=== PATIENT | female | born 1940 | race Caucasian/White ===

== ENCOUNTER 2016-09-20 02:02 | Emergency (ER) | payer OTHER, BC ==
[~2016-09-20] VITALS: Ht 152.4 cm; Wt 86.2 kg
[~2016-09-20 02:02] MED LIST: ACETAMINOPHEN PO; ALDACTONE25 MG PO; AMLODIPINE BESY10 MG PO; AMOX TR-K CLV1 EAC3 PO; APAP500 PO; BREO ELLIPTA 11 EACH IH; BYSTOLIC 5 MG5 M1 PO; CARBIDOPA-LEVO1 EAC9 PO; CEFADROXIL 500500 M1 PO; CELEXA 20 MG TA20 M1 PO; CELEXA 20 MG TA20 MG PO; CELEXA20 MG PO; CLONAZEPAM 0.50.5 M1 PO; CLONAZEPAM 1 MG1 M1 PO; COZAAR100 MG PO; DEMADEX20 MG PO; DUONEB 2.5-0.5 M3 ML INH; FUROSEMIDE 40 M40 M1 PO; GLUCOSAMINE &1 EACH PO; HYDROCODONE-AP1 EAC6 PO; HYZAAR 100-251 EACH PO; IRBESARTAN75 MG PO; KLOR-CON 1010 MEQ PO; LAMOTRIGINE200 MG PO; LASIX 20 MG TAB20 MG PO; LEVAQUIN 500 M500 MG PO; LEVOTHYROXIN0.112 M1 PO; LEVOTHYROXIN0.137 M1 PO; LORTAB 7.5/5001 TA3 PO; LOSARTAN-HCTZ1 EAC3 PO; MOBIC15 MG PO; POTASSIUM20 PO; PRAVACHOL80 MG PO; PRAVASTATIN SOD40 MG PO; PREDNISONE 20 M20 M1 PO; PREDNISONE 20 M20 MG PO; PRILOSEC40 MG PO; PROBIOTIC1 EAC1 PO; RANITIDINE HCL300 M1 PO; RISPERDAL0.5 MG PO; RISPERIDONE 1 MG1 MG PO; SPIRIVA; STRI PO; SYMBICORT160 MCG/4. IH; SYMBICORT160 MCG/4. INH; TERBINAFINE HC250 MG PO; TOPROL XL50 MG PO; TUMS CHEWA500 MG/11 PO; VENLAFAXIN75 MG/1 T2 PO; VITAMIN D1000 UNI1 PO; VITAMIN D250000 UNIT PO; [UNRECOGNIZED DRUG - OTHER] PO; [UNRECOGNIZED DRUG - OTHER] PO
[2016-09-20] MEDS ORDERED: DEMADEX10 MG (02:32)
[2016-09-20 02:37] LABS: ABG SAMPLE TYPE ARTERIAL; BE(vivo) 0.8 mmol/L (-2 to +3); HCO3 25.2 mmol/L (22.0-26.0); LACTATE 1.22 mmol/L (0.5-2.0); O2(CT) 14.9 mL/dL (15.0-23.0); O2Hb 91.4 % (92.0-98.0); PCO2 39.4 mmHg (35.0-45.0); PO2 62.9 mmHg (80.0-100.0); STICK SITE L.BRACHIAL; pH 7.424 (7.360-7.450); sO2 92.6 % (92.0-98.0); tCO2 26.4 mmol/L (24.0-30.0)
[2016-09-20 03:01] LABS: ABSOLUTE NEUTROPHILS 6.7 thou/uL (1.4-8.2); BASOPHILS 0.2 % (0.0-2.0); EOSINOPHILS 3.1 % (0.0-3.0); HEMATOCRIT 34.1 % (37.0-47.0); HEMOGLOBIN 11.1 gm/dL (12.0-15.0); LYMPHOCYTES 13.2 % (24.0-44.0); MCH 27.5 pg (26.0-34.0); MCHC 32.5 % (28.0-37.0); MCV 84.8 fL (80.0-100.0); MONOCYTES 9.8 % (1.0-8.0); PLATELET COUNT 206 thou/uL (150-400); POLYS 73.7 % (36.0-66.0); RBC 4.02 mil/uL (4.20-5.00); RDW 14.8 % (10.5-14.5); WBC 9.1 thou/uL (4.0-11.0)
[2016-09-20 03:04] LABS: MANUAL DIFF NO
[2016-09-20 03:12] LABS: CALCIUM 9.1 mg/dL (8.5-10.1); CREATININE 1.2 mg/dL (0.6-1.3)
[2016-09-20 03:15] LABS: POTASSIUM 4.5 mmol/L (3.5-5.1)
[2016-09-20] MEDS ORDERED: PROAIR HFA8.5 GM INH (03:45)
[2016-09-20] MEDS ORDERED: PREDNISONE 20 M20 MG PO (03:45)
[2016-09-20] MEDS ORDERED: TUSSIONEX PENN473 ML PO (03:51)
[2016-09-20] MEDS ORDERED: LEVAQUIN 500 M500 MG PO (04:07)
== END 2016-09-20 04:18 | disposition home or self-care (01) ==
LOC: ER 02:02
PROVIDERS: Emergency Medicine
DX: J44.1 Chronic obstructive pulmonary disease with (acute) exacerbation (principal); J98.01 Acute bronchospasm; F10.99 Alcohol use, unspecified with unspecified alcohol-induced disorder; K21.9 Gastro-esophageal reflux disease without esophagitis; I10 Essential (primary) hypertension; E78.00 Pure hypercholesterolemia, unspecified; F32.9 Major depressive disorder, single episode, unspecified; F41.9 Anxiety disorder, unspecified; Z98.890 Other specified postprocedural states; Z87.891 Personal history of nicotine dependence; Z88.8 Allergy status to other drugs, medicaments and biological substances

== ENCOUNTER → 2016-10-07 | Outpatient (CLI) | payer OTHER, BC ==
[~2016-10-07] MED LIST changes: +DEMADEX10 MG; +PROAIR HFA8.5 GM INH; +TUSSIONEX PENN473 ML PO
== END ==
LOC: RAD 12:59
DX: Z12.31 Encounter for screening mammogram for malignant neoplasm of breast (principal)

== ENCOUNTER 2017-06-12 06:21 | Inpatient (IN) | payer OTHER, BC ==
[~2017-06-12] VITALS: Ht 152.4 cm; Wt 92.9 kg
--- NOTE | ~2017-06-12 | EKG ---
[address] [address] ELECTROCARDIOGRAM REPORT Name: MINDI VILLANUEVA Room #: 450-P ADM IN M.R.#: [id number] Admission: 06/12/17 Attend Phys: Christiano Ward MD Discharge: Date of : 40 Report #: [id number] THIS REPORT FOR: //name// 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
--- NOTE | ~2017-06-12 | HC ---
[facility] [place] [address] CONSULTATION Name: MINDI VILLANUEVA Room #: 350-[facility] IN M.R.#: [id number] Admission: 06/12/17 Attend Phys: Christiano Ward MD Discharge: 06/17/17 Date of : 40 Report #: [id number] THIS REPORT FOR: //name// CC: Christiano Marry [facility] DATE OF SERVICE: 06/12/2017 REFERRING PROVIDER: Christiano Ward MD REASON FOR CONSULTATION: Shortness of breath. CHIEF COMPLAINT: Shortness of breath. HISTORY OF PRESENT ILLNESS: Our group is asked to see the patient in consultation while hospitalized at [facility], a pleasant 77-year-old woman with a past pulmonary history of chronic obstructive pulmonary disease, followed by Dr. Sumit Sullivan of our group for this, typically on Breo inhaler and p.r.n. nebulized treatments. She had been in her usual state of health, felt well until early this morning when she developed increasing shortness of breath and nonproductive cough. No fevers or chills. She awoke from sleep about 3:00 or 4:00 this morning with these symptoms. Denies any chest pain and presented to the Emergency Department. Chest x-ray suggested some perihilar infiltrates, which may be suggestive of pulmonary edema or early infiltrates. In the Emergency Department, was given Solu-Medrol, bronchodilators and has improved. No antibiotics have been administered. The patient is without any fever or sweats. Currently, resting comfortably in bed, typically does not require supplemental oxygen at home. She states, however, has been compliant with CPAP at night. No recent travel. No recent exposures. No recent ill contacts. ALLERGIES: INCLUDE ASPIRIN. PAST MEDICAL HISTORY: 1. Chronic obstructive pulmonary disease. 2. History of diastolic congestive heart failure. 3. Hypertension. 4. Hyperlipidemia. 5. Hypothyroidism. 6. Obstructive sleep apnea. PAST SURGICAL HISTORY: Includes thyroidectomy and cholecystectomy. SOCIAL HISTORY: The patient is a nonsmoker. No significant alcohol consumption. Lives with family. [facility] [address] [place] [address] CONSULTATION Name: MINDI VILLANUEVA Room #: 350-P [facility] IN ..#: [id number] Admission: 06/12/17 Attend Phys: Christiano Ward MD Discharge: 06/17/17 Date of : 40 Report #: [id number] FAMILY HISTORY: Negative for any significant pulmonary disease. REVIEW OF SYSTEMS: CONSTITUTIONAL: Denies any fever, chills or sweats. ENT: No upper respiratory congestion, rhinorrhea or dysphagia. CARDIOVASCULAR: No chest pains or palpitations. GASTROINTESTINAL: No nausea, vomiting, diarrhea, constipation or abdominal pain. GENITOURINARY: No dysuria, no frequency or hematuria. INTEGUMENT: Denies any rash. MUSCULOSKELETAL: No joint pains. Some lower extremity edema noted. Rest of 12 point review of systems normal or negative except as described in HPI. PHYSICAL EXAMINATION: VITAL SIGNS: Temperature 38.1, pulse 84, respiratory rate 20, blood pressure 140/51, oxygen saturation 93% on room air. GENERAL: This is an obese, elderly female, in no distress. HEENT: Clear oropharynx, Mallampati 3 airway, no thrush, no erythema. NECK: Supple, no lymphadenopathy. LUNGS: Bilateral basilar inspiratory crackles, no wheezes. CARDIOVASCULAR: Heart regular. No murmurs or gallops. ABDOMEN: Soft, nontender, no masses. EXTREMITIES: Revealed 1+ edema. LABORATORY DATA: Arterial blood gas done on 5 liters nasal cannula revealed pH 7.35, pCO2 of 51, pO2 of 84, bicarbonate 27. Sodium 142, potassium 3.8, chloride 105, bicarbonate 30, BUN 21, creatinine 1.3, glucose 166. ProBNP is 334. TSH is 1.014. Troponin is less than 0.04. White blood cell count 12,000, hemoglobin 13, hematocrit 39, platelet count 286. IMPRESSION: 1. Bilateral hilar infiltrates, can be consistent with early pulmonary edema, also could be consistent with pneumonia, possibly even aspiration during the evening while asleep should be considered. Given the leukocytosis and low-grade fever, would suggest covering with antimicrobial therapy for now. 2. Chronic obstructive pulmonary disease with acute exacerbation. 3. Diastolic congestive heart failure with decompensation. 4. Mildly elevated D-dimer. 5. Obstructive sleep apnea. SUGGESTIONS: 1. CPAP at night. 2. Follow arterial blood gas. 3. Add Levaquin. [address] [address] CONSULTATION Name: MINDI VILLANUEVA Room #: 350-P DIS IN M.R.#: [id number] Admission: 06/12/17 Attend Phys: Christiano Ward MD Discharge: 06/17/17 Date of : 40 Report #: [id number] 4. Continue with systemic steroids. 5. Bronchodilators. 6. Diuresis per business consultant. 7. Consider further imaging with CT scan of the chest regarding possible pulmonary embolus, although I think this is unlikely. Creatinine is slightly elevated at 1.3, we would not pursue at this time. 8. We will follow along with you. Thank you for requesting our suggestions. <ELECTRONICALLY SIGNED> By: Josh Hassan MD 06/20/17 0916 1432 1524 Josh Hassan MD /nt
--- NOTE | ~2017-06-12 | EKG ---
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: HTHOM : 1940 Requested By: Soco Jeff Order Number: [id number] MD: Ernesto Jenkins Measurements Intervals [place] Rate: 87 P: 60 SD: 158 QRS: -11 QRSD: 92 T: 34 QT: 368 QTc: 443 Interpretive Statements Sinus rhythm Nonspecific ST segment abnormality Compared to ECG 08/03/2015 13:40:33 No significant changes Electronically Signed On 06-13-2017 8:33:23 CDT by Ernesto Jenkins [email or web address] <ELECTRONICALLY SIGNED> By: Ernesto Jenkins MD, [facility] 09/832 5 5 Ernesto Jenkins MD, [facility] /EPI
--- NOTE | ~2017-06-12 | 2DMMODE ---
[facility] [address] [place] [address] 2 D/M-MODE ECHOCARDIOGRAM Name: MINDI VILLANUEVA Room #: 450-P ADM IN M.R.#: [id number] Admission: 06/12/17 Attend Phys: Christiano Ward, Discharge: Date of : 40 Date of Service: 06/13/17 1324 Report #: [id number] THIS REPORT FOR: //name// APPROVED REPORT Study performed: 06/13/2017 12:49:28 EXAM: Comprehensive 2D, Doppler, and color-flow Echocardiogram Patient Location: Echo lab Room #: [facility] Status: routine BSA: 1.89 HR: 86 bpm BP: 134/54 mmHg Rhythm: NSR Other Information Study Quality: Adequate Indications Dyspnea Edema. Hx: COPD, HTN, CHF 2D Dimensions RVDd: 37.52 mm LVEF(%): 64.07 (>50%) IVSd: 11.08 (7-11mm) LVOT Diam: 21.25 (18-24mm) LVDd: 47.15 mm PWd: 12.14 (7-11mm) Ascending Ao: 31.33 (22-36mm) LVDs: 30.71 (25-40mm) Aortic Root: 33.93 mm Stark's LVEF: 64.07 % Volumes Left Atrial Volume (Systole) Single Plane 4CH: 59.39 mL Single Plane 2CH: 62.42 mL LA ESV Index: 35.00 mL/m2 Aortic Valve AoV Peak Yuri.: 1.98 m/s AO Peak Gr.: 15.60 mmHg LVOT Max P.78 mmHg LVOT Max V: 1.72 m/s YOLI Vmax: 3.08 cm2 Mitral Valve E/A Ratio: 0.5 [facility] [place] [address] 2 D/M-MODE ECHOCARDIOGRAM Name: MINDI VILLANUEVA Room #: 450-P ADM IN M.R.#: [id number] Admission: 06/12/17 Attend Phys: Christiano Ward, Discharge: Date of : 40 Date of Service: 06/13/17 1324 Report #: [id number] MV Decel. Time: 132.01 ms MV E Max Yuri.: 0.73 m/s MV A Yuri.: 1.38 m/s MV PHT: 38.28 ms IVRT: 83.04 ms Pulmonary Valve PV Peak Yuri.: 1.00 m/s PV Peak Gr.: 3.99 mmHg Tricuspid Valve TR Peak Yuri.: 2.87 m/s RAP Estimate: 5.00 mmHg TR Peak Gr.: 33.04 mmHg PA Pressure: 38.00 mmHg Left Ventricle The left ventricle is normal size. Mild basal septal hypertrophy is present. Left ventricular systolic function is normal. LVEF is 65-70%. Mild diastolic dysfunction is present (impaired relaxation pattern). Right Ventricle The right ventricle is normal size. The right ventricular systolic function is normal. Atria Left atrium is mildly dilated. Right atrium is at the upper limits of normal. Aortic Valve The Aortic valve is mildly sclerotic. Trace aortic regurgitation. There is no aortic valvular stenosis. Mitral Valve The mitral valve is normal in structure. Trace mitral regurgitation. Tricuspid Valve The tricuspid valve is normal in structure. Mild tricuspid regurgitation. Estimated PAP is 38mmHg. Pulmonic Valve The pulmonary valve is normal in structure. Trace pulmonic regurgitation. Great Vessels The aortic root is normal in size. The ascending aorta is normal in [facility] [address] [place] [address] 2 D/M-MODE ECHOCARDIOGRAM Name: MINDI VILLANUEVA Room #: 450-P [facility] IN .R.#: [id number] Admission: 06/12/17 Attend Phys: Christiano Ward, Discharge: Date of : 40 Date of Service: 06/13/17 1324 Report #: [id number] size. IVC is normal in size and collapses >50% with inspiration. Pericardium There is no pericardial effusion. <Conclusion> The left ventricle is normal size. Left ventricular systolic function is normal. Mild basal septal hypertrophy is present. LVEF is 65-70%. Mild diastolic dysfunction is present (impaired relaxation pattern). The right ventricle is normal size. Left atrium is mildly dilated. Right atrium is at the upper limits of normal. The Aortic valve is mildly sclerotic. There is no aortic valvular stenosis. Trace mitral regurgitation. Mild tricuspid regurgitation. Estimated PAP is 38mmHg. There is no pericardial effusion. <ELECTRONICALLY SIGNED> By: Washington Pritchard MD, FACC 06/13/17 1324 1324 132 Washington Pritchard MD, FACC /INF
[2017-06-12 06:24] VITALS: BP 149/74
[2017-06-12] MEDS ORDERED: TRAZODONE HCL50 MG PO (06:37)
[2017-06-12] MEDS ORDERED: MELATONIN5 M1 PO (06:38)
[2017-06-12] MEDS ORDERED: BREO ELLIPTA 21 EACH IH (06:38)
[2017-06-12 06:44] LABS: ABSOLUTE NEUTROPHILS 8.4 thou/uL (1.4-8.2); BASOPHILS 0.5 % (0.0-2.0); EOSINOPHILS 1.5 % (0.0-3.0); HEMATOCRIT 38.5 % (37.0-47.0); HEMOGLOBIN 12.8 gm/dL (12.0-15.0); MCH 29.5 pg (26.0-34.0); MCHC 33.3 g/dL (28.0-37.0); MCV 88.6 fL (80.0-100.0); MONOCYTES 3.9 % (1.0-8.0); PLATELET COUNT 286 thou/uL (150-400); POLYS 73.1 % (36.0-66.0); RBC 4.35 mil/uL (4.20-5.00); RDW 14.9 % (10.5-14.5); WBC 11.5 thou/uL (4.0-11.0)
[2017-06-12 06:46] LABS: ABG SAMPLE TYPE ARTERIAL; HCO3 27.4 mmol/L (22.0-26.0); LACTATE 2.07 mmol/L (0.5-2.0); O2(CT) 16.3 mL/dL (15.0-23.0); PCO2 50.7 mmHg (35.0-45.0); sO2 85.9 % (92.0-98.0); tCO2 28.9 mmol/L (24.0-30.0)
[2017-06-12 06:47] LABS: O2Hb 84.9 % (92.0-98.0); PO2 53.7 mmHg (80.0-100.0); STICK SITE R.RADIAL
[2017-06-12 06:52] LABS: ANION GAP 7 mmol/L (7-16); BUN 21 mg/dL (7-18); CALCIUM 9.4 mg/dL (8.5-10.1); CHLORIDE 105 mmol/L (98-107); CO2 30 mmol/L (21-32); CREATININE 1.3 mg/dL (0.6-1.0); GLUCOSE 166 mg/dL (74-106); POTASSIUM 3.8 mmol/L (3.5-5.1); SODIUM 142 mmol/L (136-145)
[2017-06-12 06:53] LABS: MANUAL DIFF NO
[2017-06-12 07:01] LABS: TROPONIN-I < 0.04 ng/mL (<0.04-0.07)
[2017-06-12 08:06] VITALS: BP 152/117
[2017-06-12 08:32] VITALS: BP 147/45
[2017-06-12 09:15] VITALS: BP 140/51
[2017-06-12 16:30] VITALS: BP 122/41
[2017-06-12 19:20] VITALS: BP 136/43
[2017-06-13 00:02] VITALS: BP 133/54
[2017-06-13 04:48] VITALS: BP 111/54
[2017-06-13 06:12] LABS: ABG SAMPLE TYPE ARTERIAL; BE(vivo) 5.8 mmol/L (-2 to +3); HCO3 29.6 mmol/L (22.0-26.0); LACTATE 2.24 mmol/L (0.5-2.0); O2(CT) 16.4 mL/dL (15.0-23.0); O2Hb 95.5 % (92.0-98.0); PCO2 40.1 mmHg (35.0-45.0); PO2 79.5 mmHg (80.0-100.0); STICK SITE L.RADIAL; pH 7.486 (7.360-7.450); sO2 96.5 % (92.0-98.0); tCO2 30.8 mmol/L (24.0-30.0)
[2017-06-13 06:49] LABS: HEMATOCRIT 33.6 % (37.0-47.0); HEMOGLOBIN 10.9 gm/dL (12.0-15.0); MCH 28.5 pg (26.0-34.0); MCHC 32.5 g/dL (28.0-37.0); MCV 87.8 fL (80.0-100.0); RBC 3.83 mil/uL (4.20-5.00); RDW 14.4 % (10.5-14.5)
[2017-06-13 06:53] LABS: CALCIUM 9.3 mg/dL (8.5-10.1); CREATININE 1.1 mg/dL (0.6-1.0); POTASSIUM 3.3 mmol/L (3.5-5.1)
[2017-06-13 07:30] VITALS: BP 134/54
[2017-06-13 10:56] VITALS: BP 117/46
[2017-06-13 15:51] VITALS: BP 120/49
[2017-06-13 20:08] VITALS: BP 137/50
[2017-06-14 03:17] VITALS: BP 148/49
[2017-06-14 06:43] LABS: CALCIUM 9.5 mg/dL (8.5-10.1); CREATININE 1.3 mg/dL (0.6-1.0); POTASSIUM 3.6 mmol/L (3.5-5.1)
[2017-06-14 07:07] VITALS: BP 129/49
[2017-06-14 08:00] VITALS: BP 129/49
[2017-06-14 12:00] VITALS: BP 127/52
[2017-06-14 15:26] VITALS: BP 139/54
[2017-06-14 19:14] VITALS: BP 104/59
[2017-06-15 00:11] VITALS: BP 115/57
[2017-06-15 03:55] VITALS: BP 140/59
[2017-06-15 06:10] LABS: HEMATOCRIT 33.6 % (37.0-47.0); HEMOGLOBIN 11.1 gm/dL (12.0-15.0); MCHC 32.9 g/dL (28.0-37.0); MCV 88.1 fL (80.0-100.0); RBC 3.82 mil/uL (4.20-5.00); RDW 14.9 % (10.5-14.5); WBC 10.4 thou/uL (4.0-11.0)
[2017-06-15 07:30] LABS: CALCIUM 9.6 mg/dL (8.5-10.1); CREATININE 1.4 mg/dL (0.6-1.0); POTASSIUM 4.1 mmol/L (3.5-5.1)
[2017-06-15 07:41] VITALS: BP 130/72
[2017-06-15 11:45] VITALS: BP 136/68
[2017-06-15 15:53] VITALS: BP 130/46
[2017-06-15 19:36] VITALS: BP 122/42
[2017-06-16 00:07] LABS: INFLUENZA B Negative (Negative); METAPNEUMOVIRUS Negative (Negative)
[2017-06-16 04:06] VITALS: BP 176/74
[2017-06-16 04:32] LABS: HEMATOCRIT 35.3 % (37.0-47.0); HEMOGLOBIN 11.6 gm/dL (12.0-15.0); MCH 28.8 pg (26.0-34.0); MCHC 32.8 g/dL (28.0-37.0); MCV 87.8 fL (80.0-100.0); RBC 4.02 mil/uL (4.20-5.00); RDW 14.7 % (10.5-14.5); WBC 9.2 thou/uL (4.0-11.0)
[2017-06-16 04:43] LABS: CALCIUM 9.1 mg/dL (8.5-10.1); CREATININE 1.3 mg/dL (0.6-1.0); POTASSIUM 4.4 mmol/L (3.5-5.1)
[2017-06-16 08:15] VITALS: BP 154/68
[2017-06-16 09:11] LABS: ANTI-DNA SCREEN <1 IU/mL (0-9); ANTI-RNP <0.2 AI (0.0-0.9)
[2017-06-16 12:30] VITALS: BP 137/85
[2017-06-16 16:56] VITALS: BP 145/72
[2017-06-16 20:00] VITALS: BP 145/88
[2017-06-17 02:59] VITALS: BP 163/71
[2017-06-17 06:14] LABS: HEMATOCRIT 38.1 % (37.0-47.0); HEMOGLOBIN 12.6 gm/dL (12.0-15.0); MCH 28.9 pg (26.0-34.0); MCV 87.5 fL (80.0-100.0); RBC 4.36 mil/uL (4.20-5.00); RDW 14.9 % (10.5-14.5); WBC 7.6 thou/uL (4.0-11.0)
[2017-06-17 06:25] LABS: CALCIUM 9.1 mg/dL (8.5-10.1); CREATININE 1.3 mg/dL (0.6-1.0); POTASSIUM 4.2 mmol/L (3.5-5.1)
[2017-06-17 07:30] VITALS: BP 152/67
[2017-06-17] MEDS ORDERED: PREDNISONE 20 M20 MG PO (08:40)
[2017-06-17 11:37] VITALS: BP 107/56
[2017-06-17] MEDS ORDERED: DUONEB 2.5-0.5 M3 ML INH (11:49)
[2017-06-17] MEDS ORDERED: AUGMENTIN 500-1 EACH PO (11:49)
[2017-06-17] MEDS ORDERED: DEMADEX20 MG PO (11:50)
[2017-06-17] MEDS ORDERED: MUCINEX600 MG PO (11:50)
[2017-06-17 12:26] VITALS: BP 107/56
[2017-06-17 17:09] LABS: c-ANCA <1:20 titer (Neg:<1:20); p-ANCA <1:20 titer (Neg:<1:20)
== END 2017-06-17 13:49 | disposition home or self-care (01) | DRG 177 ==
LOC: ER 06:21 → EROBS 08:28 → 4W 08:28 → 3W 06-16 19:18 → ENTRNSPT 06-17 13:11 → EDTRNSPTSTS 06-17 13:14 → 3W 06-17 13:49
PROVIDERS: Emergency Medicine; Hospitalist; Internal Medicine; Internal Medicine Pulmonary Disease; Nurse Practitioner Adult Health
DX: J69.0 Pneumonitis due to inhalation of food and vomit (principal); I50.33 Acute on chronic diastolic (congestive) heart failure; J96.00 Acute respiratory failure, unspecified whether with hypoxia or hypercapnia; J44.1 Chronic obstructive pulmonary disease with (acute) exacerbation; I13.0 Hypertensive heart and chronic kidney disease with heart failure and stage 1 through stage 4 chronic kidney disease, or unspecified chronic kidney disease; F32.9 Major depressive disorder, single episode, unspecified; F41.9 Anxiety disorder, unspecified; E78.00 Pure hypercholesterolemia, unspecified; K21.9 Gastro-esophageal reflux disease without esophagitis; G20 Parkinson's disease; E78.5 Hyperlipidemia, unspecified; E03.9 Hypothyroidism, unspecified; G47.33 Obstructive sleep apnea (adult) (pediatric); M19.90 Unspecified osteoarthritis, unspecified site; N18.3 Chronic kidney disease, stage 3 (moderate); Z96.659 Presence of unspecified artificial knee joint; Z90.49 Acquired absence of other specified parts of digestive tract; Z87.442 Personal history of urinary calculi; Z87.891 Personal history of nicotine dependence; Z88.6 Allergy status to analgesic agent; Z79.899 Other long term (current) drug therapy
CPT/HCPCS: 10045; 10779

== ENCOUNTER → 2017-10-10 | Outpatient (CLI) | payer OTHER, BC ==
[~2017-10-10] MED LIST changes: +AUGMENTIN 500-1 EACH PO; +BREO ELLIPTA 21 EACH IH; +MELATONIN5 M1 PO; +MUCINEX600 MG PO; +TRAZODONE HCL50 MG PO
== END ==
LOC: RAD 02:08
DX: Z12.31 Encounter for screening mammogram for malignant neoplasm of breast (principal)

== ENCOUNTER → 2018-01-09 | Outpatient (CLI) | payer OTHER, BC | LOC: RAD 14:31 | DX: M47.894 Other spondylosis, thoracic region (principal); M41.84 Other forms of scoliosis, thoracic region ==

== ENCOUNTER 2018-09-10 10:06 | Inpatient (IN) | payer OTHER, BC ==
[~2018-09-10] VITALS: Ht 152.4 cm; Wt 93.4 kg
[~2018-09-10 10:06] MED LIST changes: -AMLODIPINE BESY10 MG PO; +LAMICTAL150 MG PO; -LAMOTRIGINE200 MG PO; +NORVASC5 MG PO; +SYNTHROID112 MC1 PO
[2018-09-10 10:17] VITALS: BP 121/58
[2018-09-10 10:53] LABS: HEMATOCRIT 33.2 % (37.0-47.0); MCHC 33.3 g/dL (28.0-37.0); MCV 87.1 fL (80.0-100.0); PLATELET COUNT 182 thou/uL (150-400); RBC 3.81 mil/uL (4.20-5.00); RDW 15.5 % (10.5-14.5); WBC 6.1 thou/uL (4.0-11.0)
[2018-09-10 10:56] LABS: ANION GAP 10 mmol/L (7-16); BUN 20 mg/dL (7-18); CALCIUM 8.9 mg/dL (8.5-10.1); CHLORIDE 104 mmol/L (98-107); CO2 27 mmol/L (21-32); CREATININE 1.1 mg/dL (0.6-1.0); GLUCOSE 137 mg/dL (74-106); POTASSIUM 3.5 mmol/L (3.5-5.1); SODIUM 141 mmol/L (136-145)
[2018-09-10 11:05] LABS: ALBUMIN 3.2 g/dL (3.4-5.0); MAGNESIUM 1.8 mg/dL (1.8-2.4); SGOT 15 U/L (15-37); SGPT 9 U/L (30-65); TOTAL BILIRUBIN 0.3 mg/dL (<0.1-1.0); TOTAL PROTEIN 6.5 g/dL (6.4-8.2); TROPONIN-I <0.06 ng/mL (<0.06)
[2018-09-10 11:42] LABS: ABSOLUTE NEUTROPHILS 4.6 thou/uL (1.4-8.2); ANISOCYTOSIS SLIGHT
[2018-09-10 14:13] VITALS: BP 153/56
[2018-09-10 14:29] VITALS: BP 169/60
[2018-09-10 15:08] VITALS: BP 141/88
[2018-09-10 20:05] VITALS: BP 141/44
[2018-09-11 04:26] VITALS: BP 155/67
[2018-09-11 05:48] LABS: HEMATOCRIT 35.9 % (37.0-47.0); HEMOGLOBIN 11.8 gm/dL (12.0-15.0); MCH 28.7 pg (26.0-34.0); RBC 4.12 mil/uL (4.20-5.00); RDW 15.6 % (10.5-14.5); WBC 6.1 thou/uL (4.0-11.0)
[2018-09-11 06:06] LABS: CALCIUM 9.5 mg/dL (8.5-10.1); CREATININE 1.1 mg/dL (0.6-1.0); POTASSIUM 3.4 mmol/L (3.5-5.1)
[2018-09-11 08:00] VITALS: BP 185/76
--- NOTE | 2018-09-11 11:17 | EKG ---
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
[2018-09-11] MEDS ORDERED: DEMADEX20 MG PO (12:25)
[2018-09-11] MEDS ORDERED: PREDNISONE 20 M20 MG PO (12:25)
--- NOTE | 2018-09-11 13:02 | 2DMMODE ---
[facility] [address] [place] [address] 2 D/M-MODE ECHOCARDIOGRAM Name: MINDI VILLANUEVA Room #: 458-P ADM IN M.R.#: [id number] Admission: 09/10/18 Attend Phys: Zeeshan Rodriguez MD Discharge: Date of : 40 Date of Service: 09/11/18 1302 Report #: [id number] THIS REPORT FOR: //name// APPROVED REPORT Study performed: 09/11/2018 11:43:15 EXAM: Comprehensive 2D, Doppler, and color-flow Echocardiogram Patient Location: In-Patient Room #: 458 Status: routine BSA: 1.89 HR: 88 bpm BP: 185/76 mmHg Indications Congestive Heart Failure COPD Dyspnea Hypertension/HDD 2D Dimensions RVDd: 34.88 mm IVSd: 12.55 (7-11mm) LVOT Diam: 20.52 (18-24mm) LVDd: 42.19 mm PWd: 12.98 (7-11mm) Ascending Ao: 32.98 (22-36mm) LVDs: 30.19 (25-40mm) Aortic Root: 26.66 mm IVC: 13.00 mm Volumes Left Atrial Volume (Systole) Single Plane 4CH: 69.46 mL Single Plane 2CH: 38.85 mL LA ESV Index: 30.00 mL/m2 Aortic Valve AoV Peak Yuri.: 1.92 m/s AO Peak Gr.: 14.76 mmHg LVOT Max P.35 mmHg LVOT Max V: 1.96 m/s YOLI Vmax: 3.37 cm2 Mitral Valve E/A Ratio: 0.6 MV Decel. Time: 208.38 ms MV E Max Yuri.: 0.85 m/s MV A Yuri.: 1.54 m/s [facility] [place] [place] [address] 2 D/M-MODE ECHOCARDIOGRAM Name: VILLANUEVAMINDI JOHNSON Room #: 458-P ADM IN M.R.#: [id number] Admission: 09/10/18 Attend Phys: Zeeshan Rodriguez MD Discharge: Date of : 40 Date of Service: 09/11/18 1302 Report #: [id number] PHT: 60.43 ms IVRT: 122.26 ms Pulmonary Valve PV Peak Yuri.: 1.23 m/s PV Peak Gr.: 6.09 mmHg Pulmonary Vein P Vein S: 0.73 m/s P Vein A: 0.35 m/s P Vein D: 0.94 m/s P Vein A Dur.: 114.2 msec P Vein S/D Ratio: 0.78 Tricuspid Valve TR Peak Yuri.: 3.23 m/s RAP Estimate: 5.00 mmHg TR Peak Gr.: 41.67 mmHg PA Pressure: 47.00 mmHg Left Ventricle The left ventricle is normal size. Mild concentric left ventricular hypertrophy. Left ventricular systolic function is hyperdynamic. LVEF is 70%. Mild diastolic dysfunction is present (impaired relaxation pattern). Right Ventricle The right ventricle is normal size. The right ventricular systolic function is normal. Atria The left atrium size is normal. The right atrium size is normal. Aortic Valve The aortic valve is normal in structure. No aortic regurgitation is present. There is no aortic valvular stenosis. Mitral Valve The mitral valve is normal in structure. Mild mitral regurgitation. No evidence of mitral valve stenosis. Tricuspid Valve The tricuspid valve is normal in structure. Trace to mild tricuspid regurgitation. PAP is estimated at 47 mmHg. Pulmonic Valve Pulmonic valve is not well visualized. There is no pulmonic valvular regurgitation. [address] [address] 2 D/M-MODE ECHOCARDIOGRAM Name: MINDI VILLANUEVA Room #: 458-P [facility] IN ..#: [id number] Admission: 09/10/18 Attend Phys: Zeeshan Rodriguez MD Discharge: Date of : 40 Date of Service: 09/11/18 1302 Report #: [id number] Great Vessels The aortic root is normal in size. IVC is normal in size and collapses >50% with inspiration. Pericardium There is no pericardial effusion. <Conclusion> The left ventricle is normal size. Mild concentric left ventricular hypertrophy. Left ventricular systolic function is hyperdynamic. Mild diastolic dysfunction is present (impaired relaxation pattern). The right ventricle is normal size. The left atrium size is normal. The right atrium size is normal. The aortic valve is normal in structure. Mild mitral regurgitation. Trace to mild tricuspid regurgitation. PAP is estimated at 47 mmHg. <ELECTRONICALLY SIGNED> By: Marcos Arriaga MD 09/11/18 1302 1302 130 Marcos Arriaga MD /INF
[2018-09-11 13:47] VITALS: BP 185/76
[2018-09-11 14:57] VITALS: BP 185/76
--- NOTE | 2018-09-12 14:14 | HC ---
[facility] [place] [place] [address] CONSULTATION Name: MINDI VILLANUEVA Room #: 458-P [facility] IN M.R.#: [id number] Admission: 09/10/18 Attend Phys: Zeeshan Rodriguez MD Discharge: 09/11/18 Date of : 40 Report #: [id number] THIS REPORT FOR: //name// CC: Zeeshan Rodriguez FAM unknown PULMONARY CONSULTATION PRIMARY CARE PHYSICIAN: Maria Luisa Davila MD. REFERRAL PHYSICIAN: Zeeshan Rodriguez MD. REASON FOR REFERRAL: Dyspnea, COPD. HISTORY OF PRESENT ILLNESS: The patient is a 78-year-old white female who presents to Emergency Room with progressive dyspnea for the past 3 days. A pulmonary consultation was requested. The patient has known COPD. She is followed longitudinally by Dr. Alphonse Orta. She was last seen in the office in 08/30/2018. The patient has smoked 30+ years. She quit in 2005. Her baseline FEV1 measured 0.86 liter or 50% predicted, FVC measured 1.1 liter or 50% predicted, FEV1/FVC ratio 78% on a spirometry from 09/2017. She has COPD and is on CPAP at home. She was in her usual state of health until 3 days prior to presentation. She started developing increasing dyspnea, cough, nonproductive. She denies any chest pain, night sweats or chills. Yesterday morning, she was quite short of breath, for which she presented to the Emergency Room. She states that she is much improved today and anxious to go home. PAST MEDICAL HISTORY: COPD, severe impairment, passive tobacco use, sleep apnea on CPAP at 9 cm of water pressure, gastroesophageal reflux disease, hypertension, Parkinson's disease, REM associated behavioral movement disorder, history of thyroid cancer. PAST SURGICAL HISTORY: Include cholecystectomy, hemorrhoidectomy, nasal septoplasty, turbinoplasty, bilateral knee replacement, thyroid surgery as mentioned above. ALLERGIES: ASPIRIN, WHICH CAUSES HIVES. CURRENT MEDICATIONS: Reviewed, this includes Proventil, Norvasc, Sinemet, Klonopin, Lexapro, Breo 200 mcg 1 puff once a day, levothyroxine, melatonin, potassium supplements, Pravachol, Deltasone, Demadex, Desyrel. [facility] [address] [place] [address] CONSULTATION Name: MINDI VILLANUEVA Room #: 458-P [facility] IN ..#: [id number] Admission: 09/10/18 Attend Phys: Zeeshan Rodriguez MD Discharge: 09/11/18 Date of : 40 Report #: [id number] FAMILY HISTORY: Noncontributory. Both parents . SOCIAL HISTORY: She is . She has smoked for 30 years, smoked more than a pack a day, she quit in 2005. She drinks alcohol socially. REVIEW OF SYSTEMS: As mentioned above, otherwise 10-point system review negative. PHYSICAL EXAMINATION: GENERAL: She is awake, alert, in no apparent distress. VITAL SIGNS: Temperature is 98.2 degrees Fahrenheit, pulse is 90, respiratory rate is 20, blood pressure 185/76 mmHg, saturation 91%. HEENT: Normocephalic, atraumatic. NECK: Supple, without any lymphadenopathy or thyromegaly. CHEST: Breath sounds are good with mild expiratory wheezes. No rales. CARDIOVASCULAR: Heart sounds are distant. No murmurs or gallop. There is no JVD. There is no carotid bruit. Pulses 2+/4+ bilaterally. ABDOMEN: Soft, nontender, no organomegaly or masses felt. GENITOURINARY: Deferred. RECTAL: Deferred. EXTREMITIES: There is no edema, cyanosis or clubbing. LABORATORY DATA: Chest x-ray is relatively clear, mild cardiomegaly, mild left lower lobe atelectasis, no infiltrates seen. Electrolytes are normal. Liver enzymes are grossly unremarkable. WBC 6100, hemoglobin 11.8; albumin 3.2. IMPRESSION: 1. Exacerbation of chronic obstructive pulmonary disease, severe impairment, baseline FEV1 of 0.89 liters or 54% predicted. 2. Sleep apnea, on home CPAP. 3. Gastroesophageal reflux disease. 4. Hypertension. 5. Parkinson's disease. 6. REM behavioral sleep disorder. 7. History of thyroid cancer. RECOMMENDATION AND DISCUSSION: Overall, she is much improved. Although she has bronchospasm, I think it is reasonable to discharge the patient to home. Okay to discharge the patient from my perspective. Follow up in the pulmonary office in next 1-2 weeks. Would suggest prednisone 40 mg once a day for 5 days, oral antibiotic such as doxycycline 100 mg twice a day for 5 days, continue Breo, continue albuterol MDI 2 puffs p.r.n., continue nebulized albuterol 4 times a day and p.r.n. It is recommended the patient take it easy for the next 1-2 weeks. [facility] [address] [place] [address] CONSULTATION Name: MINDI VILLANUEVA Room #: 458-P DIS IN M.R.#: [id number] Admission: 09/10/18 Attend Phys: Zeeshan Rodriguez MD Discharge: 09/11/18 Date of : 40 Report #: [id number] Thank you for this consultation. <ELECTRONICALLY SIGNED> By: Nael Babin MD 09/12/18 1414 1222 1303 Nael Babin MD /nt
== END 2018-09-11 15:05 | disposition home or self-care (01) | DRG 190 ==
LOC: ER 10:06 → EROBS 12:39 → 4W 12:39
PROVIDERS: Physician Assistant; ADMIT Hospitalist
DX: J44.1 Chronic obstructive pulmonary disease with (acute) exacerbation (principal); E43 Unspecified severe protein-calorie malnutrition; I13.0 Hypertensive heart and chronic kidney disease with heart failure and stage 1 through stage 4 chronic kidney disease, or unspecified chronic kidney disease; G47.30 Sleep apnea, unspecified; I50.9 Heart failure, unspecified; E03.9 Hypothyroidism, unspecified; E87.6 Hypokalemia; N18.3 Chronic kidney disease, stage 3 (moderate); E78.00 Pure hypercholesterolemia, unspecified; J98.01 Acute bronchospasm; G47.52 REM sleep behavior disorder; F32.9 Major depressive disorder, single episode, unspecified; F41.9 Anxiety disorder, unspecified; G20 Parkinson's disease; K21.9 Gastro-esophageal reflux disease without esophagitis; Z96.653 Presence of artificial knee joint, bilateral; Z88.6 Allergy status to analgesic agent; Z90.49 Acquired absence of other specified parts of digestive tract; Z87.891 Personal history of nicotine dependence; Z79.899 Other long term (current) drug therapy; Z87.442 Personal history of urinary calculi
CPT/HCPCS: 10047

== ENCOUNTER 2018-09-14 11:59 | Inpatient (IN) | payer OTHER, BC ==
[~2018-09-14] VITALS: Ht 149.9 cm; Wt 86.2 kg
[2018-09-14 12:40] VITALS: BP 152/69
[2018-09-14 14:20] LABS: HEMOGLOBIN 12.4 gm/dL (12.0-15.0); WBC 8.8 thou/uL (4.0-11.0)
[2018-09-14 14:22] LABS: ABSOLUTE NEUTROPHILS 7.9 thou/uL (1.4-8.2); BASOPHILS 0.3 % (0.0-2.0); HEMATOCRIT 38.4 % (37.0-47.0); LYMPHOCYTES 7.7 % (24.0-44.0); MCH 28.4 pg (26.0-34.0); MCHC 32.3 g/dL (28.0-37.0); PLATELET COUNT 228 thou/uL (150-400); RBC 4.36 mil/uL (4.20-5.00); RDW 15.5 % (10.5-14.5)
[2018-09-14 14:35] LABS: ALBUMIN 3.7 g/dL (3.4-5.0); CALCIUM 9.4 mg/dL (8.5-10.1); CREATININE 1.4 mg/dL (0.6-1.0); MAGNESIUM 1.8 mg/dL (1.8-2.4); POTASSIUM 3.4 mmol/L (3.5-5.1); TOTAL BILIRUBIN 0.3 mg/dL (<0.1-1.0); TOTAL PROTEIN 7.5 g/dL (6.4-8.2)
--- NOTE | 2018-09-14 15:00 | NUR ---
ADM PT IS A DIRECT ADMIT FROM HOME. PT ORIENTED TO ROOM, ADM ORDERS CARRIED OUT. WILL CONTINUE TO MONITOR.
[2018-09-14 16:52] VITALS: BP 121/50
[2018-09-14 16:54] LABS: URINE BILIRUBIN NEGATIVE (Negative); URINE BLOOD NEGATIVE (Negative); URINE CLARITY CLEAR; URINE COLOR YELLOW; URINE GLUCOSE-RANDOM* NEGATIVE (Negative); URINE KETONES NEGATIVE (Negative); URINE LEUKOCYTES-REFLEX NEGATIVE (Negative); URINE NITRITE-REFLEX NEGATIVE (Negative); URINE PROTEIN (DIPSTICK) NEGATIVE (Negative); URINE SPECIFIC GRAVITY 1.015 (1.005-1.035); URINE UROBILINOGEN 0.2 E.U./dl (0.2-1.0)
[2018-09-14 20:19] VITALS: BP 145/73
[2018-09-15 02:48] VITALS: BP 160/78
--- NOTE | 2018-09-15 02:58 | NUR ---
ASSUMED CARE FROM PREVIOUS SHIFT PT RESTING IN BED FAMILY AT BEDSIDE, RESP EASY NON-LARBORED AT REST, DISCUSSED PLAN OF CARE, VERBALIZED UNDERSTANDING AND AGREEABLE. CPAP ON DURING NIGHT FOR SLEEP SAT 95 % . CARDIAC MONTIOR ON SHOWS NSR. WILL CONINTNUE WITH CURRENT PLAN OF CARE
[2018-09-15 07:40] VITALS: BP 158/74
--- NOTE | 2018-09-15 09:29 | NUR ---
ORDERS RECEIVED FOR EVAL AND TREAT. SPOKE WITH Pt WHO STATES SHE IS NOT HAVING ANY DIFFICULTY WITH HER MOBILITY AND IS DECLINING A FORMAL P.T. EVAL.
--- NOTE | 2018-09-15 10:00 | NUR ---
CM VISITED WITH PT AT BEDSIDE. PT IS A & O X4, PLEASANT AND ABLE TO MAKE HER NEEDS KNOW. ON RA AND NO CO OF SOA DURING CONVERSATION, SHE WOULD REST DURING SENTENCE. PT AT BEDSIDE WELL FOR SHORT VISIT. INTRO TO CM, TRANSITION OF CARE, HOME HEALTH AND OUPT REHAB. " I HAVE HAD HH IN PAST, OUTPT REHAB AND OUTPT PULMONARY REHAB IN PAST. I AM INDEPENDENT AT HOME, HELPS ME WITH DRESSING. USE SHOWER CHAIR AND HAVE GRAB BARS IN BATHROOM. USE NEBULIZER AND CPAP AT HOME. USED TO HAVE OXYGEN BUT ONLY NEEDED IT FOR SHORT TERM. SET UP MEDICATION IN PILL BOX FOR ME. 12 STEPS TO BASEMENT AND HARDLY EVER GO DOWN THERE. WILL BE GOING HOME WHEN DC."/MINDI. WILL CONT FOLLOWING NEEDED FOR DC NEEDS. NO ANTICIPATED NEEDS. PT REQUESTED WARM BLANKET, US GOT PT WARM BLANKET AND CM DELIVERED TO PT. DCP HOME
[2018-09-15 16:46] VITALS: BP 125/68
--- NOTE | 2018-09-15 18:43 | NUR ---
ASSUMED CARE AT 0700. AXOX4. ADMIT WITH COPD. O2 SAT STABLE. EDUCATED ON DEEP BREATHING. SOLUMEDROL DOSE REDUCED TO Q8. COMPLIANT. STILL ON ZOSYN. WORKED WITH PT/OT. REPORTS BETTER BREATHING. DENIES ANY PAIN OR DISCOMFORT AT THIS TIME. SEEN BY AT BEDSIDE. ONE TIME ORDER FOR FUROSEMIDE. WILL CONT TO MONITOR FOR ANY CHANGES/
[2018-09-15 19:12] VITALS: BP 115/57
--- NOTE | 2018-09-16 02:41 | NUR ---
Assumed care of the patient at 0715pm. Alert et oriented x 3. The patient was up walking in the hallway this pm with her around 10pm. Walking on room air. No SOA noted at that time. Walking with a steady gait. Denied pain at that time. Resting well through hourly rounds.
[2018-09-16 05:25] VITALS: BP 179/83
[2018-09-16 07:55] VITALS: BP 151/78
[2018-09-16 16:01] VITALS: BP 111/57
--- NOTE | 2018-09-16 19:36 | NUR ---
ASSUMED CARE AT 0700, SHIFT ASSESSMENT DONE, MED GIVEN, VSS. DENIES ANY PAIN, ON IV STEROID, ACHS, FSBS STABLE. ON IV ANTIBIOTCS. ON ROOM AIR. WILL CONTINUE TO ASSESS AND ASSIST WITH ADLs NEEDED.
[2018-09-16 20:50] VITALS: BP 140/74
--- NOTE | 2018-09-17 01:06 | NUR ---
PATIENT ASSESSED AND IS ALERT X 4. IS FORGETFUL AT TIMES. DAUGHTER AND HERE THIS EVENING. SHE TOOK A WALK AROUND THE UNIT 1 TIME WITH HER . MELISSA WELL. UP AD [place] WITH ASSISTANCE STAND-BY WITH IV POLE. VOIDS WELL. TELE- SHOWS NSR. DENIES ANY CHEST PAIN. SLEEPS WITH HER OWN CPAP. IV SITE HEALTHY. NO SKIN ISSUES NOTED. TAKES MEDS WELL. DENIES ANY SOA. HAS WHEEZING NOTED TO LOWER LOBES. ON ROOM AIR. ON IV ANTIBIOTICS AND STEROIDS. WILL BE DC IN AM OR TUESDAY. CONT PLAN OF CARE. DENIES ANY PAIN.
[2018-09-17 04:54] VITALS: BP 158/78
--- NOTE | 2018-09-17 04:58 | NUR ---
PATIENT TALKED ABOUT BEING TRANSFERED TO SENIOR SUITES. WAS OK WITH HER. PACKED UP AND TREANSFERED TO ROOM 226. REMAINS ALERT X 4.
--- NOTE | 2018-09-17 05:28 | NUR ---
REPORT CALLED FROM 4W @ 4494 BY AARON PEACE. PT ARRIVED ON UNIT VIA WC @ 2885. VSS UPON ARRIVAL ON UNIT. PT SOA WITH AUDIBLE WHEEZES NOTED. PT EDUCATED TO DEEP BREATH. O2 SAT 89% INITIALLY, BUT QUICKLY INCREASED TO 93% WITH THE DEEP BREATHING. PT A&O X4. REPORT GIVEN OF SOME FORGETFULNESS, BUT THIS HAS NOT BEEN NOTED BY THIS NURSE YET. PIV IN RIGHT FA PATENT AND SALINE LOCKED AT THIS TIME. RECEIVES IV ZOSYN Q8H AND IV METHYLPREDNISONE Q12H. STATES LBM: 09/16 AND THAT SHE HAS BMS DAILY. PT DENIES ANY PAIN AT THIS TIME. NO SKIN ISSUES NOTED OTHER THAN BRUISING ON ARMS AND LEGS. REPORT GIVEN THAT PLAN WAS FOR DC HOME WITH ON TUESDAY OR TUESDAY. PT CURRENTLY SITTING IN BED READING IN NO ACUTE DISTRESS. PT ABLE TO VERBALIZE NEEDS APPROPRIATELY. CALL LIGHT AND PERSONAL BELONGINGS WITHIN REACH. BED LOCKED AND IN LOWEST POSITION. WCTM.
[2018-09-17 07:49] VITALS: BP 189/88
[2018-09-17] MEDS ORDERED: AUGMENTIN 400-1 EACH PO (09:51)
[2018-09-17] MEDS ORDERED: PREDNISONE 20 M20 MG PO (09:52)
[2018-09-17 15:23] VITALS: BP 148/63
--- NOTE | 2018-09-17 15:50 | NUR ---
ASSUMED CARE OF PATIENT THIS MORNING. PATIENT IS ALERT AND ORIENTED X4. SHE IS UP AD KOURTNEY. HER HAS HELPED OUT WITH HER CARE THROUGHOUT THE DAY. SHE WAS ASSESSED THIS MORNING AND SHE HAD DIMINISHED BREATH SOUNDS WITH SOME WHEEZING. SHE RECEIVES BREATHING TREATMENTS EVERY 4 HOURS. SHE HAS A R. FOREARM IV AND RECEIVES ZOYSN THROUGH IT. SHE RECEIVES STEROIDS AND SHE IS ON A SLIDING SCALE FOR INSULIN. PATIENT IS SITTING IN CHAIR WITH CALL LIGHT WITHIN REACH. SHE CALLS OUT APPROPRIATELY FOR ANY NEEDED ASSISTANCE.
[2018-09-17 21:44] VITALS: BP 176/66
[2018-09-18 02:07] LABS: ADENOVIRUS Negative (Negative); INFLUENZA A Negative (Negative); INFLUENZA B Negative (Negative); METAPNEUMOVIRUS Negative (Negative); PARAINFLUENZA 1 Negative (Negative); PARAINFLUENZA 2 Negative (Negative); PARAINFLUENZA 3 Negative (Negative); RHINOVIRUS Negative (Negative); RSV A Negative (Negative); RSV B Positive (Negative)
--- NOTE | 2018-09-18 05:18 | NUR ---
ASSUMED CARE OF PATIENT AT 1900. ASSESSMENT COMPLETED AT 220 AND IS DOCUMENTED. WHEEZING NOTED. LS DIMINISHED. PIV IN RIGHT FA PATENT AND SALINE LOCKED. ZOSYN GIVEN ORDERED WITHOUT COMPLICATION. 3L SUPPLEMENTAL O2 ADDED TO BIPAP BY RT D/T DESAT IN UPPER 80S. INSULIN GIVEN PER SS AT HS. PT SLEPT SOUNDLY THROUGHOUT THE NIGHT. NO ACUTE DISTRESS NOTED. ABLE TO CALL OUT APPROPRIATELY. PT CURRENTLY SLEEPING IN BED WITH CALL LIGHT AND PERSONAL ITEMS WITHIN REACH. BED LOCKED AND IN LOWEST POSITION. WCTM.
[2018-09-18 06:12] VITALS: BP 161/77
[2018-09-18 08:15] VITALS: BP 172/62
--- NOTE | 2018-09-18 11:27 | NUR ---
ASSUMED CARE OF PATIENT THIS MORNING. PATIENT IS ALERT AND ORIENTED X 4. SHE IS UP AD KOURTNEY. SHE WAS ASSESSED AND BREATH SOUNDS WERE DIMINISHED AND WHEEZING WAS ALSO HEARD. SHE HAS A RIGHT FOREARM IV AND SHE RECEIVES ZOSYN. SHE RECEIVES Q4 BREATHING TREATMENTS. SHE HAS BEEN AMBULATING IN THE HALLWAY WITH HER TO HELP BUILD UP HER STRENGTH, HELP WITH HER WEAKNESS. SHE WILL POSSIBLY BE DISCHARGED THIS AFTERNOON. PATIENT IS CURRENTLY SITTING IN CHAIR WITH CALL LIGHT WITHIN REACH.
[2018-09-18 18:49] VITALS: BP 146/67
--- NOTE | 2018-09-18 19:32 | NUR ---
I AGREE WITH NURSING ASSESSMENT DONE BY ISABELA/NINA.
--- NOTE | 2018-09-19 04:15 | NUR ---
ASSUMED CARE OF PATIENT AT 190. ASSESSMENT COMPLETED AT 2154 AND IS DOCUMENTED. PT ACCIDENTALLY PULLED OUT RIGHT FA PIV AT 1945 WHEN AMBULATING OUT OF THE RESTROOM. NEW 22 GAUGE PIV INSERTED X3 ATTEMPT ON RIGHT FA. ZOSYN INFUSED IN TO NEW PIV WITHOUT COMPLICATION. HS BLOOD SUGAR 206. 4U INSULIN GIVEN PER SS ORDERS. PT WAS ABLE TO AMBULATE IN HALLWAY WITH 5 TIMES TODAY. PT STATES SHE STILL GETS SOA, BUT FEELS LIKE SHE IS GETTING MUCH STRONGER. LBM: 09/18. PT DENIES PAIN. LUNG SOUNDS DIMINISHED. WHEEZING AUSCULTATED IN LOWER LOBES. PT CURRENTLY RECEIVING BREATHING TX Q4H. BIPAP/CPAP WORN THROUGHOUT THE NIGHT. PT CURRENTLY SLEEPING SOUNDLY IN BED IN NO ACUTE DISTRESS. CALL LIGHT AND PERSONAL ITEMS WITHIN REACH. BED LOCKED AND IN LOWEST POSITION. WCTM.
--- NOTE | 2018-09-19 11:37 | NUR ---
ASSUMED CARE AT 0700, SHIFT ASSESSMENT DONE, MEDS GIVEN, VSS. SITTING UP IN THE CHAIR THIS AM. ENCOURAGED TO USE INCENTIVE SPIROMETER. ON IV ZOSYN. WILL CONTINUE TO ASSESS AND ASSIST WITH ADLs NEEDED.
--- NOTE | 2018-09-19 13:20 | NUR ---
ASSUMED CARE AT 0700, SHIFT ASSESSMENT DONE, MEDS GIVEN, VSS. DENIES ANY NAUSEA, VOMITING. REMAINS ON ROOM AIR. WILL CONTINUE TO ASSESS AND ASSIST WITH ADLs NEEDED.
[2018-09-19 20:27] VITALS: BP 171/72
--- NOTE | 2018-09-20 06:23 | NUR ---
PATIENTS CARES WERE ASSUMED AT SHIFT CHANGE. PATIENT WAS ASSESSED AND MEDS WERE PASSED.HOURLY ROUNDING WAS DONE AND PATIENT DID APPER TO BE SLEEPING/RESTING WELL. BED ALARM IS ON AND THE BED IS IN A LOW AND LOCKED POSITION.
[2018-09-20 07:21] VITALS: BP 171/99
[2018-09-20] MEDS ORDERED: XOLAIR75 MG/0.5 INH (09:32)
--- NOTE | 2018-09-20 10:14 | NUR ---
ASSUMED CARE AT 0700, SHIFT ASSESSMENT DONE, MEDS GIVEN, VSS. REPORTED HEADECHE, PRN TYLENOL GIVEN. FSBS THIS AM WAS 108. DISCHARGE ORDERS RECEIVED, WAITING FOR THE PULMONARY DOCTOR TO CLEAR FOR DISCHARGE. WILL CONTINUE TO ASSES AND ASSIST WITH ADLs NEEDED.
[2018-09-20 13:36] VITALS: BP 157/65
--- NOTE | 2018-09-20 14:07 | NUR ---
DISCHARGE ORDERS RECEIVED. PERIPHERAL IV WAS TAKEN OUT AT 1400. DISCHARGE PAPER WORKS AND SCRIPTS GIVEN. [facility] WILL BE WHEELING PATIENT OUT.
--- NOTE | 2018-09-20 14:19 | NUR ---
S/W PT AND HER IN THE ROOM AND PT WILL DC HOME TODAY AND HAS NO DC NEEDS AT THIS TIME.
--- NOTE | 2018-09-20 14:25 | NUR ---
PERIPHERAL IV WAS TAKEN OUT, DISCHARGE PAPER WORKS AND SCRIPTS GIVEN. LEFT WITH [facility] [employer].
== END 2018-09-20 14:27 | disposition home or self-care (01) | DRG 189 ==
LOC: 4W 11:59 → SICU 09-17 04:57 → ENTRNSPT 09-20 14:07 → EDTRNSPTSTS 09-20 14:15 → SICU 09-20 14:27
PROVIDERS: Nurse Practitioner; ADMIT Hospitalist
PROC: 5A09357 Assistance with Respiratory Ventilation, Less than 24 Consecutive Hours, Continuous Positive Airway Pressure (ICD-10-PCS; principal; 2018-09-14)
DX: J96.01 Acute respiratory failure with hypoxia (principal); J44.1 Chronic obstructive pulmonary disease with (acute) exacerbation; I50.30 Unspecified diastolic (congestive) heart failure; I13.0 Hypertensive heart and chronic kidney disease with heart failure and stage 1 through stage 4 chronic kidney disease, or unspecified chronic kidney disease; F41.9 Anxiety disorder, unspecified; F32.9 Major depressive disorder, single episode, unspecified; Z66 Do not resuscitate; N18.3 Chronic kidney disease, stage 3 (moderate); K21.9 Gastro-esophageal reflux disease without esophagitis; G20 Parkinson's disease; E78.00 Pure hypercholesterolemia, unspecified; E78.5 Hyperlipidemia, unspecified; Z96.653 Presence of artificial knee joint, bilateral; J44.9 Chronic obstructive pulmonary disease, unspecified; G47.33 Obstructive sleep apnea (adult) (pediatric); E03.9 Hypothyroidism, unspecified; Z88.6 Allergy status to analgesic agent; Z90.49 Acquired absence of other specified parts of digestive tract; Z87.442 Personal history of urinary calculi; Z87.891 Personal history of nicotine dependence
CPT/HCPCS: 10045; 10047; 15001; 15002

== ENCOUNTER → 2018-10-11 | Outpatient (CLI) | payer OTHER, BC ==
[~2018-10-11] MED LIST changes: +AUGMENTIN 400-1 EACH PO; +XOLAIR75 MG/0.5 INH
== END ==
LOC: RAD 10:47
DX: I51.7 Cardiomegaly (principal)

== ENCOUNTER → 2018-11-03 | Outpatient (CLI) | payer OTHER, BC | LOC: RAD 10-26 13:25 | DX: Z12.31 Encounter for screening mammogram for malignant neoplasm of breast (principal) ==

== ENCOUNTER 2018-12-28 23:57 | Emergency (ER) | payer OTHER, BC ==
[~2018-12-28] VITALS: Ht 152.4 cm; Wt 93.4 kg
[2018-12-29 00:13] LABS: BE(vivo) 2.2 mmol/L (-2 to +3); HCO3 25.2 mmol/L (22.0-26.0); PO2 67.4 mmHg (80.0-100.0); pH 7.488 (7.360-7.450); sO2 94.9 % (92.0-98.0)
[2018-12-29 00:40] LABS: ABSOLUTE NEUTROPHILS 11.8 thou/uL (1.4-8.2); BASOPHILS 0.2 % (0.0-2.0); EOSINOPHILS 0.4 % (0.0-3.0); HEMATOCRIT 34.9 % (37.0-47.0); HEMOGLOBIN 11.5 gm/dL (12.0-15.0); LYMPHOCYTES 9.1 % (24.0-44.0); MCH 28.3 pg (26.0-34.0); MCHC 32.9 g/dL (28.0-37.0); MCV 85.8 fL (80.0-100.0); PLATELET COUNT 207 thou/uL (150-400); POLYS 84.3 % (36.0-66.0); RBC 4.06 mil/uL (4.20-5.00); RDW 14.5 % (10.5-14.5)
[2018-12-29 00:45] LABS: ANION GAP 12 mmol/L (7-16); BUN 14 mg/dL (7-18); CALCIUM 9.1 mg/dL (8.5-10.1); CHLORIDE 98 mmol/L (98-107); CO2 29 mmol/L (21-32); CREATININE 1.2 mg/dL (0.6-1.0); GLUCOSE 159 mg/dL (74-106); POTASSIUM 3.2 mmol/L (3.5-5.1); SODIUM 139 mmol/L (136-145)
[2018-12-29 00:54] LABS: TROPONIN-I <0.06 ng/mL (<0.06)
[2018-12-29] MEDS ORDERED: PREDNISONE 20 M20 M1 PO (01:11)
[2018-12-29] MEDS ORDERED: ZPAK PO (01:11)
[2018-12-29 01:16] VITALS: BP 118/35
--- NOTE | 2018-12-30 18:28 | EKG ---
[place] [address] [facility] [employer] [place] [address] ELECTROCARDIOGRAM REPORT Name: KAYMINDI ORNELAS [facility] [id number] ������������������ Admission: 12/28/18 ������������������ Attend Phys: Discharge: 12/29/18 ������������������ Date of : 40 Report #: [id number] ����������������������������������������������������������������� [id number] THIS REPORT FOR: //name// [facility] ED Test Date: 2018-12-29 Test Time: 00:04:16 Pat Name: MINDI VILLANUEVA Department: Room: Gender: F Mold Carrier: THO : 1940 Requested By: Shakir Lopez Order Number: [id number] MD: Zbigniew Garcia Measurements Intervals [place] [facility] Rate: 90 P: NM: QRS: 45 QRSD: 85 T: 64 QT: 355 QTc: 435 Interpretive Statements Sinus rhythm Early transition Baseline artifact Baseline wander in lead(s) V3 Compared to ECG 09/10/2018 10:23:27 No significant changes Electronically Signed On 12-30-2018 18:28:17 CDT by Zbigniew Garcia [email or web address] ��������������������������������������������� <ELECTRONICALLY SIGNED> ���������������������������������������� By: Zbigniew Garcia MD ��������������������������������������������� 12/30/18 1828 0004 0004 Zbigniew Garcia MD /DARRIAN
== END 2018-12-29 01:17 | disposition home or self-care (01) ==
LOC: ER 23:57
PROVIDERS: Emergency Medicine
DX: J44.1 Chronic obstructive pulmonary disease with (acute) exacerbation (principal); F32.9 Major depressive disorder, single episode, unspecified; F41.9 Anxiety disorder, unspecified; E78.00 Pure hypercholesterolemia, unspecified; G47.30 Sleep apnea, unspecified; I10 Essential (primary) hypertension; K21.9 Gastro-esophageal reflux disease without esophagitis; G20 Parkinson's disease; Z87.891 Personal history of nicotine dependence; Z88.6 Allergy status to analgesic agent

== ENCOUNTER → 2019-10-30 | Outpatient (CLI) | payer OTHER, BC ==
[~2019-10-30] MED LIST changes: +ZPAK PO
== END ==
LOC: RAD 10:30
DX: Z12.31 Encounter for screening mammogram for malignant neoplasm of breast (principal)

== ENCOUNTER → 2020-06-23 | Outpatient (CLI) | payer OTHER, BC | LOC: SJCVC 14:46 | PROVIDERS: ATTEND Internal Medicine Cardiovascular Disease | DX: R94.31 Abnormal electrocardiogram [ECG] [EKG] (principal); I11.0 Hypertensive heart disease with heart failure; I50.32 Chronic diastolic (congestive) heart failure; I25.10 Atherosclerotic heart disease of native coronary artery without angina pectoris; E78.00 Pure hypercholesterolemia, unspecified; G20 Parkinson's disease; Z79.899 Other long term (current) drug therapy; Z87.891 Personal history of nicotine dependence ==

== ENCOUNTER → 2020-11-17 | Outpatient (CLI) | payer OTHER, BC | LOC: BC 10-28 12:45 | PROVIDERS: ATTEND Obstetrics & Gynecology | DX: Z12.31 Encounter for screening mammogram for malignant neoplasm of breast (principal) ==

== ENCOUNTER → 2021-08-19 | Outpatient (CLI) | payer OTHER, BC | LOC: RAD 12:21 | PROVIDERS: ATTEND Pediatrics | DX: J98.11 Atelectasis (principal); R91.8 Other nonspecific abnormal finding of lung field; R06.02 Shortness of breath; M47.814 Spondylosis without myelopathy or radiculopathy, thoracic region; M41.84 Other forms of scoliosis, thoracic region; I70.0 Atherosclerosis of aorta ==